=== PATIENT | male | born 1970 | race Caucasian/White ===

== ENCOUNTER → 2019-07-22 | Outpatient (CLI) | payer OTHER ==
--- NOTE | 2019-07-22 08:17 | RADIOLOGY REPORT (SQ) ---
EXAM DESCRIPTION: U/S ABDOMEN LTD W/DOPPLER COMPLETED DATE/TIME: 07/22/2019 7:38 am REASON FOR STUDY: OTHER INTRA-ABDOMINAL AND PELVIC SWELLING, MASS AND LUMP (R19.09) R19.09 OTHER IN TRA-ABDOMINAL AND PELVIC SWELLING, MASS AND L COMPARISON: None. TECHNIQUE: Dynamic and static grayscale images acquired of the localized site of clinical concern an d recorded on PACS. Additional selected color Doppler and spectral images recorded. SITE OF CONCERN: Epigastric soft tissues LIMITATIONS: None. FINDINGS: SKIN AND SUBCUTANEOUS TISSUES: Small 1.3 x 0.7 x 1.7 cm slightly hyperechoic lesion. This is avascular. Possibly lymph node or lipoma. DEEP SOFT TISSUES/MUSCLES: No masses. No fluid collections. No edema. VASCULAR: No increased or decreased vascularity. No occlusions. OTHER: No other significant finding. IMPRESSION: Small subcutaneous mass at the area of palpable abnormality. Most likely this represent s lymph node or small lipoma. It is largely avascular. TECHNICAL DOCUMENTATION: JOB ID: [id number] [employer]- All Rights Reserved Reading location - IP/workstation name: [email or web address]
== END ==
LOC: RAD 07:13
PROVIDERS: ATTEND Physician Assistant
DX: R19.09 Other intra-abdominal and pelvic swelling, mass and lump (principal)
CPT/HCPCS: 76705; 93976